=== PATIENT | female | born 1935 | race Caucasian/White ===

== ENCOUNTER 2023-02-08 19:21 | Emergency (ER) | payer MEDICARE, OTHER ==
[~2023-02-08] VITALS: Ht 167.6 cm; Wt 104.8 kg
[2023-02-08] MEDS ORDERED: SUCCINYLCHOLINE CHLORIDE 20 MG/ML VIAL IV ONE ×2 (19:30→23:30)
[2023-02-08] MEDS ORDERED: ETOMIDATE 2 MG/ML VIAL IV ONE ×2 (19:30→23:30)
--- NOTE | 2023-02-08 19:35 | NUR ---
[id number], fom snf, had seizure episode, ams, last well known 1500, bg 162 Versed 5 mg given on scene, no oral trauma/injury. PLACED IN BED, RESPONDING TO PAINFUL STIMULI. BREATHING UNLABORED SATURATING AT 99% WITH O2 15LIT VIA NRM. ULISES NOTED MD AT BEDSIDE FOR EVAL.
[2023-02-08] MEDS ORDERED: LEVETIRACETAM (500MG) 500 MG/5 ML VIAL IV ONE ×3 (19:45→22:43)
--- NOTE | 2023-02-08 19:51 | NUR ---
SHUTTLE REPAIRER AT BEDSIDE
[2023-02-08] MEDS ORDERED: LORAZEPAM INJ 2 MG/ML VIAL ONE ×3 (19:56→23:01)
[2023-02-08] MEDS ORDERED: LORAZEPAM INJ 2 MG/ML VIAL IV ONE ×3 (20:00→23:00)
[2023-02-08] MEDS ORDERED: PIPERACILLIN /TAZOBACTAM 3.375 G in IV D5W 50 ML IV ONE (20:00)
[2023-02-08] MEDS ORDERED: LEVETIRACETAM (500MG) 1,000 MG in IV NS 0.9% 100 ML IV SCH (20:00)
--- NOTE | 2023-02-08 20:34 | NUR ---
SWAB FOR COVID19 SENT TO LAB
[2023-02-08] MEDS ORDERED: PIPERACI/TAZO 3.375GM/D5W 50ML PB IV ONE (20:37)
[2023-02-08 20:43] LABS: BASOPHILS % (AUTO) 0.1 % (0.0-2.0); HEMATOCRIT 46 % (33-45); LYMPHOCYTES # (AUTO) 0.7 K/uL (0.8-4.8); LYMPHOCYTES % (AUTO) 3.9 % (20.0-44.0); MEAN CORPUSCULAR HGB CONC 33 g/dl (31.0-36.0); MEAN CORPUSCULAR VOLUME 91 fL (82-100); MONOCYTES # (AUTO) 0.7 K/uL (0.1-1.30); MONOCYTES % (AUTO) 3.6 % (2.0-12.0); NEUTROPHILS # (AUTO) 16.9 K/uL (1.8-8.9); NEUTROPHILS % (AUTO) 92.4 % (43.0-81.0); PLATELET COUNT (AUTO) 274 K/uL (150-450); RED BLOOD CELL COUNT(AUTO) 5.01 MIL/uL (4.0-5.2); WHITE BLOOD COUNT (AUTO) 18.3 K/uL (4.3-11.0)
[2023-02-08 20:45] LABS: CALCIUM, SERUM 9.5 mg/dL (8.5-10.1); CARBON DIOXIDE 28 mmol/L (21-32); CHLORIDE 95 mmol/L (98-107); CREATININE 0.8 mg/dL (0.6-1.3); GLUCOSE 153 mg/dL (74-106); POTASSIUM 4.2 mmol/L (3.5-5.1); SODIUM SERUM 131 mmol/L (136-145); UREA NITROGEN, BLOOD 14 mg/dL (7-18)
[2023-02-08 20:58] LABS: ALANINE AMINOTRANSFERASE 18 U/L (12-78); ALBUMIN 3.5 g/dL (3.4-5.0); ALKALINE PHOSPHATASE 115 U/L (46-116); ASPARTATE AMINOTRANSFERASE 19 U/L (15-37); BILIRUBIN,DIRECT 0.1 mg/dL (0.0-0.2); BILIRUBIN,TOTAL 0.4 mg/dL (0.2-1.0)
--- NOTE | 2023-02-08 21:06 | NUR ---
PATIENT TAKEN TO CT VIA [facility]
[2023-02-08 21:26] LABS: BILIRUBIN,URINE NEGATIVE (NEGATIVE); COLOR,URINE YELLOW (YELLOW); LEUKOCYTE ESTERASE ,URINE NEGATIVE (NEGATIVE); NITRITE, URINE NEGATIVE (NEGATIVE); PH,URINE 6.5 (5.0-8.0); PROTEIN,URINE 1+ mg/dl (NEGATIVE); UGLUCOSE NEGATIVE (NEGATIVE); UROBILINOGEN,URINE 0.2 EU/dL (0.2)
[2023-02-08 21:41] LABS: BACTERIA,URINE Rare /HPF (None Seen); RBC,URINE 0-2 /HPF (0-2); SQUAMOUS EPITHELIAL CELL,UR Rare /HPF (None Seen); WBC,URINE NONE SEEN /HPF (0-3)
[2023-02-08] MEDS ORDERED: LEVETIRACETAM (500MG) 500 MG in IV NS 0.9% 100 ML IV STA (21:44)
--- NOTE | 2023-02-08 22:26 | NUR ---
CLINICALS AND FACESHEET FAXED TO [facility] AT [phone]
--- NOTE | 2023-02-08 22:37 | NUR ---
SPOKE WITH KWAKU FROM [facility], TRANSPORT ETA 30 MIN
[2023-02-08] MEDS ORDERED: PROPOFOL 100 ML ONE (23:08)
--- NOTE | 2023-02-08 23:17 | NUR ---
TWO RN, RT, AND MD AGUSTIN AT BEDSIDE FOR INTUBATION
--- NOTE | 2023-02-08 23:18 | NUR ---
20MG ETOMIDATE GIVEN IVP
--- NOTE | 2023-02-08 23:18 | NUR ---
SUCCICHOLINE 100MG GIVEN IVP
--- NOTE | 2023-02-08 23:19 | NUR ---
PT INTUBATED WITH 7.5 ET TUBE 22 AT THE LIP. POSITIVE COLOR CHANGE ON CAPNOGRAPHY AND BILATERAL LUNG SOUNDS PRESENT. VENT SETTING FIO2 100% TV450 RATE 18 PEEP 5.
[2023-02-08 23:20] VITALS: BP 186/62
--- NOTE | 2023-02-08 23:20 | NUR ---
COMMENCED ON DIPRIVAN INF. ORDERED AT 5MCG/KG/MIN- 3.143MLS/HR.
[2023-02-08] MEDS ORDERED: PROPOFOL 100 ML IV PRN (23:30)
--- NOTE | 2023-02-08 23:50 | NUR ---
INFORMED LEATHA (TRANSFER DEPT.) BULMARO RAI WITH REGARDS TO CHANGE THAT PATIENT IS INTUBATED AND SHE WILL INFORM DR HARDEN.
--- NOTE | 2023-02-08 23:55 | NUR ---
PATIENT PICKUP BY [facility] FOR TRANSFER TO [facility] AND REPORT WAS GIVEN.
--- NOTE | 2023-02-08 23:56 | NUR ---
ABOVE DIPRIVAN INF. STILL RUNNING DURING TRANSFER.
== END 2023-02-08 23:55 | disposition short-term general hospital (02) ==
LOC: ER 19:29 → EDSEX 19:29 → ER 23:55
DX: I61.5 Nontraumatic intracerebral hemorrhage, intraventricular (principal); G91.1 Obstructive hydrocephalus; R41.82 Altered mental status, unspecified; G40.909 Epilepsy, unspecified, not intractable, without status epilepticus; I10 Essential (primary) hypertension; E78.5 Hyperlipidemia, unspecified; E66.01 Morbid (severe) obesity due to excess calories; Z20.822 Contact with and (suspected) exposure to COVID-19
CPT/HCPCS: 99291; 31500; 96365; 70450; 71045 ×2; 96375; 96367; 87426; 93005; 96376; 84145; 85025; 80048; 87040 ×2; 87086; 83605; 80076; 83735; 81001; 36415; 84484; 85730; 87081; J2060 ×3; J0330; J2543 ×2; J7060; J7030 ×2; J3490 ×2; J1953 ×4; C9803